=== PATIENT | female | born 1965 | race Two or more races ===

== ENCOUNTER 2019-03-11 12:57 | Emergency (ER) | payer BC ==
[2019-03-11 13:05] VITALS: TEMP 98.6; BMI 27.3
--- NOTE | 2019-03-11 13:52 | PDOC ---
Attending Attestation - Resident Resident Name: Joshua Lechuga - HPI HPI: 03/11/19 15:40 Pt presents to the ED complaining of epigastric pain that has been persistent for several weeks. Pain is severe, waxing and waning, and N - Physicial Exam PE: 03/11/19 15:47 Agree with resident exam. Patient is alert and oriented and in no acute distress. Abdomen is soft, non tender, non distended, without guarding or rebound. - Medical Decision Making 03/11/19 15:50 Pt presents to the ED complaining of epigastric pain. History of ulcer, intermittent compliance with omeprazole. Will check labs to rule out pancreatitis or biliary disease, check US to evaluate for cholecystitis and reassess.
[2019-03-11] MEDS ORDERED: ONDANSETRON 4 MG/2 ML VIAL IVPUSH ONE (14:01)
[2019-03-11] MEDS ORDERED: ACETAMINOPHEN 1000 MG/100 ML VIAL (NON FORMULARY) IVPB ONE (14:01)
[2019-03-11] MEDS ORDERED: SODIUM CHLORIDE 1,000 ML IV STA (14:01)
[2019-03-11] MEDS ORDERED: FAMOTIDINE 20 MG/50 ML IVPB 20 MG/50 ML MG IVPB ONE ×2 (14:01→14:32)
--- NOTE | 2019-03-11 14:18 | PDOC ---
History of Present Illness - General Chief Complaint: Pain Stated Complaint: ABDOMINAL PAIN Time Seen by Provider: 03/11/19 13:50 History Source: Patient Exam Limitations: No Limitations - History of Present Illness Initial Comments: 03/11/19 14:12 Patient is a 53F with history of DM (on metformin) and gastric ulcer ( previously treated by Dr Fink) here today complaining of two days of epigastric pain. She describes it as a burning with radiation to her chest. Denies fevers, endorses chills. Denies nausea, vomiting, diarrhea constipation. Denies vaginal pain, discharge. Hysterectomy at 37. Denies pain in chest and shortness of breath. Patient states that this feels like her prior ulcers. Past History - Past Medical History Allergies/Adverse Reactions: Allergies Allergy/AdvReac Type Severity Reaction Status Date / Time No Known Allergies Allergy Verified 03/11/19 13:05 Home Medications: Ambulatory Orders Metformin HCl [Glucophage] 500 mg PO BID 03/11/19 Omeprazole 40 mg PO DAILY PRN 03/11/19 COPD: No Diabetes: Yes GI Disorders: Yes (ulcer) - Surgical History Appendectomy: Yes - Psycho Social/Smoking Cessation Hx Smoking History: Never smoked Review of Systems - Review of Systems Able to Perform ROS?: Yes Comments:: 03/11/19 14:16 GENERAL/CONSTITUTIONAL: No fever or chills. No weakness. HEAD, EYES, EARS, NOSE AND THROAT: No change in vision. No sore throat. CARDIOVASCULAR: No chest pain or shortness of breath RESPIRATORY: No cough, wheezing, or hemoptysis. GASTROINTESTINAL: No nausea, vomiting, diarrhea or constipation. GENITOURINARY: No dysuria, frequency, or change in urination. MUSCULOSKELETAL: No joint or muscle swelling or pain. No neck or back pain. SKIN: No rash NEUROLOGIC: No headache, vertigo, loss of consciousness, or change in strength/ sensation. ENDOCRINE: No increased thirst. No abnormal weight change HEMATOLOGIC/LYMPHATIC: No anemia, easy bleeding, +history of blood clots (DVT, not currently on AC) ALLERGIC/IMMUNOLOGIC: No hives or skin allergy. *Physical Exam - Vital Signs Last Vital Signs Temp Pulse Resp BP Pulse Ox 98.6 F 104 H 18 116/80 98 03/11/19 13:02 03/11/19 13:02 03/11/19 13:02 03/11/19 13:02 03/11/19 13:02 - Physical Exam Comments: 03/11/19 14:18 GENERAL: Awake, alert, and fully oriented, in no acute distress HEAD: No signs of trauma, normocephalic, atraumatic EYES: PERRLA, EOMI, sclera anicteric, conjunctiva clear ENT: Auricles normal inspection, hearing grossly normal, nares patent, oropharynx clear without exudates. Moist mucosa NECK: Normal ROM, supple, no lymphadenopathy, JVD, or masses LUNGS: No distress, speaks full sentences, clear to auscultation bilaterally HEART: Regular rate and rhythm, normal S1 and S2, no murmurs, rubs or gallops, peripheral pulses normal and equal bilaterally. ABDOMEN: Soft, mildly tender in RUQ and LUQ, normoactive bowel sounds. No guarding, no rebound. No masses EXTREMITIES: Normal inspection, Normal range of motion, no edema. No clubbing or cyanosis. NEUROLOGICAL: Cranial nerves II through XII grossly intact. Normal speech, normal gait, no focal sensorimotor deficits SKIN: Warm, Dry, normal turgor, no rashes or lesions noted. ED Treatment Course - LABORATORY CBC & Chemistry Diagram: 03/11/19 14:30 03/11/19 14:30 - RADIOLOGY Radiology Studies Ordered: Category Date Time Status ABDOMEN US -LIMITED [US] Stat Ultrasound 03/11/19 14:02 Ordered Medical Decision Making - Medical Decision Making 03/11/19 14:18 Patient is 53F with history of DM and gastric ulcer here today with epigastric pain. Vitals notable for mild tachycardia, otherwise stable. DDx includes, but is not limited to: gastritis, pancreatitis, cholecystitis. Will treat with tylenol, fluids, zofran, pepcid. Will evaluate with cbc, cmp, lipase, trop, ekg , us. 03/11/19 15:40 CBC normal CMP reassuring. Trop negative. Lipase negative. US shows fatty liver. Pain resolved, will discharge pending EKG. 03/11/19 16:28 UA clear EKG shows NSR with rate of 77. No st elevations/depressions. Normal axis. Normal intervals. Patient continues to be pain free. Results discussed. Given outpatient follow up. Discharge - Discharge Information Problems reviewed: Yes Clinical Impression/Diagnosis: Abdominal pain Condition: Good Disposition: HOME - Admission No - Follow up/Referral Referrals: Saroj Fink MD [Staff Physician] - - Patient Discharge Instructions Patient Printed Discharge Instructions: DI for Abdominal Pain-Adult Additional Instructions: You were seen today in the ED for your abdominal pain. We believe your pain is most likely caused by inflammation in your stomach. Please follow up with your primary care doctor and Dr Fink in the next week. Please return if you have any new, worsening or concerning symptoms, especially increasing pain, fever and vomiting. - Post Discharge Activity Work/Back to School Note: Back to Work
[2019-03-11] MEDS ORDERED: ONDANSETRON 4 MG/2 ML VIAL ONE (14:32)
[2019-03-11] MEDS ORDERED: ACETAMINOPHEN INJECTION 100 ML IVPB ONE (14:32)
[2019-03-11 14:51] LABS: BASO % 0.4 % (0-2.0); EOS % 1.8 % (0-4.5); HEMATOCRIT 37.1 % (32.4-45.2); HEMOGLOBIN 12.5 GM/dL (10.7-15.3); LYMPH % 22.5 % (8-40); MCH 30.1 pg (25.7-33.7); MCHC 33.7 g/dl (32.0-36.0); MEAN CELL VOLUME 89.2 fl (80-96); MEAN PLT VOLUME 8.3 fl (7.5-11.1); MONO % 5.7 % (3.8-10.2); NEUT % 69.6 % (42.8-82.8); PLATELET COUNT 325 K/MM3 (134-434); RBC 4.16 M/mm3 (3.60-5.2); RDW 13.8 % (11.6-15.6); WHITE BLOOD COUNT 6.1 K/mm3 (4.0-10.0)
[2019-03-11 15:10] LABS: ALBUMIN 3.6 g/dl (3.4-5.0); BILIRUBIN,TOTAL 0.2 mg/dL (0.2-1); BLOOD UREA NITROGEN 13.1 mg/dL (7-18); CALCIUM 8.9 mg/dL (8.5-10.1); CREATININE 0.7 mg/dL (0.55-1.3); TOT PROT 7.3 g/dl (6.4-8.2)
[2019-03-11 15:17] LABS: INR 1.03 (0.83-1.09); PROTHROMBIN TIME (PATIENT) 12.2 SEC (9.7-13.0)
[2019-03-11 16:14] LABS: URINE APPEARANCE CLEAR; URINE BILIRUBIN NEGATIVE (NEGATIVE); URINE COLOR YELLOW; URINE GLUCOSE (UA) NEGATIVE (NEGATIVE); URINE KETONE NEGATIVE (NEGATIVE); URINE LEUK ESTERASE NEGATIVE (NEGATIVE); URINE NITRITE NEGATIVE (NEGATIVE); URINE PROTEIN NEGATIVE (NEGATIVE)
[2019-03-11 16:43] VITALS: BP 115/70; PULSE 80
--- NOTE | 2019-03-12 15:56 | EKG ---
Test Reason : Blood Pressure : / mmHG Vent. Rate : 077 BPM Atrial Rate : 077 BPM P-R Int : 172 ms QRS Dur : 088 ms QT Int : 428 ms P-R-T Axes : 025 016 037 degrees QTc Int : 484 ms NORMAL SINUS RHYTHM MINIMAL VOLTAGE CRITERIA FOR LVH, MAY BE NORMAL VARIANT PROLONGED QT ABNORMAL ECG WHEN COMPARED WITH ECG OF 24-NOV-2008 09:50, NO SIGNIFICANT CHANGE WAS FOUND Confirmed by ANISHA DUFF, BEAN ([id number]) on 03/12/2019 3:56:08 PM Referred By: Confirmed By:BEAN LANCASTER MD
== END 2019-03-11 16:44 | disposition home or self-care (01) ==
LOC: JER 12:57
PROC: 3E0337Z Introduction of Electrolytic and Water Balance Substance into Peripheral Vein, Percutaneous Approach (ICD-10-PCS; principal; 2019-03-11)
PROC: 3E033GC Introduction of Other Therapeutic Substance into Peripheral Vein, Percutaneous Approach (ICD-10-PCS; 2019-03-11)
PROC: 3E033GC Introduction of Other Therapeutic Substance into Peripheral Vein, Percutaneous Approach (ICD-10-PCS; 2019-03-11)
PROC: 3E033NZ Introduction of Analgesics, Hypnotics, Sedatives into Peripheral Vein, Percutaneous Approach (ICD-10-PCS; 2019-03-11)
DX: R10.9 Unspecified abdominal pain (principal)
CPT/HCPCS: 36415; 76705-TC; 80053; 81003; 82550; 82553; 83690; 84484; 85025; 85610; 93005; 93010; 99283-25; J0131; J7030

== ENCOUNTER 2019-06-02 13:40 | Emergency (ER) | payer BC ==
[2019-06-02 13:50] VITALS: BMI 28.2
--- NOTE | 2019-06-02 15:04 | PDOC ---
History of Present Illness - General Chief Complaint: Chest Pain Stated Complaint: CHEST/BACK PAIN Time Seen by Provider: 06/02/19 14:08 History Source: [employer] Used ([id number]) Exam Limitations: Language Barrier Past History - Past Medical History Allergies/Adverse Reactions: Allergies Allergy/AdvReac Type Severity Reaction Status Date / Time No Known Allergies Allergy Verified 03/11/19 13:05 Home Medications: Ambulatory Orders Metformin HCl [Glucophage] 500 mg PO BID 03/11/19 Omeprazole 40 mg PO DAILY PRN 03/11/19 Guaifenesin AC [Robitussin AC] 5 ml PO Q6H PRN #60 ml MDD 20 mL 06/02/19 COPD: No Diabetes: Yes GI Disorders: Yes (ulcer) - Surgical History Appendectomy: Yes - Immunization History Immunization Up to Date: No - Psycho Social/Smoking Cessation Hx Smoking History: Never smoked Have you smoked in the past 12 months: No Information on smoking cessation initiated: No Hx Alcohol Use: No Drug/Substance Use Hx: No *Physical Exam - Vital Signs Last Vital Signs Temp Pulse Resp BP Pulse Ox 98.7 F 105 H 18 114/74 99 06/02/19 13:47 06/02/19 13:47 06/02/19 13:47 06/02/19 13:47 06/02/19 13:47 Heart Score/ECG Review - History History: Slightly suspicious - Age Age: 45-65 - Risk Factors Risk Factors Heart Score: Yes Hx Diabetes, Yes Positive family hx of cardiac disease Based on the list above the patient has:: 1-2 risk factors ED Treatment Course - LABORATORY CBC & Chemistry Diagram: 06/02/19 15:11 06/02/19 15:11 - RADIOLOGY Radiology Studies Ordered: Category Date Time Status CHEST X-RAY PORTABLE* [RAD] Stat Radiology 06/02/19 14:51 Ordered Medical Decision Making - Medical Decision Making 06/02/19 14:58 53F PMH NIDDM, prior DVT s/p surgical removal c/o 3 days of productive nonbloody cough, sore throat, congestion, fevers with substernal chest pain that only occurs with cough. Also endorses low back pain only when she coughs and a front headache whenever she coughs. Denies sob, hemoptysis, sick contacts , abd pain, n/v/d, urinary sx. +FHx cardiac dz (ACS in father @ 50). No recent travel/surgery/immobilization, OCPs, leg swelling, malignancy. NKDA Denies tobacco, etoh, and drugs CONSTITUTIONAL: Denies F / C HEENT: Endorses headache only w/ cough, sore throat, rhinorrhea. Denies changes to vision/hearing RESP: Endorses productive cough. Denies SOB CARD: Endorses chest pain only w/ cough GI: Denies N / V / D, abdominal pain, bloody stool, inability to tolerate PO : Denies dysuria, frequency SKIN: Denies rashes NEURO: Denies numbness, tingling, focal weakness MSK: Endorses low back pain only w/ cough VITALS: AF, tachycardic GEN: NAD, AAOx3. HEENT: NC/AT. No facial asymmetry. Moist mucous membranes, nonerythematous nonexudative posterior oropharynx. Normal voice. Supple neck w/ FROM. CV: S1/S2, RRR, no m/r/g LUNG: CTAB, no wheezes, crackles, rales, rhonchi. GI: Soft, ndnt, +BS, no guarding, no rebound. No masses EXTREMITIES: No obvious deformities of all extremities. No TTP calves b/l. SKIN: Warm, dry, no rashes appreciated. PSYCH: Anxious, cooperative NEURO: Moving all extremities well. BACK: b/l lumbar paraspinal TTP, no midline TTP, no step offs 53 PMH NIDDM, prior DVT s/p surgical removal c/o 3 days of productive cough w/ chest pain, LBP, and front headache ONLY with cough. unremarkable exam DDx - r/o ACS, considering PE. Sx likely 2/2 coughing - CBC, CMP, Cardiac, D-dimer - EKG - CXR 06/02/19 15:34 CXR image and report reviewed: A single view the chest reveals clear lungs, normal mediastinum and sharp angles. The bones and soft tissues are intact. Since 08/07/2014 there is slightly more prominent heart. Correlation recommended. 06/02/19 18:09 D-dimer ~ 1000 trop neg CTA r/o PE - no LMP for 20+ years s/p hysterectomy rpt trop 06/02/19 19:02 Pt temperature downtrending s/p tylenol AF on initial VS was s/p home tylenol 06/02/19 19:16 rpt trop neg 06/02/19 20:42 CTA IOC: Patient Full Name: TERRELL PATEL Patient Accession No: [id number] Patient : 1965 Reason for Exam: R/O PE Referring Physician: KIRK RUSSELL RESIDENT Patient Name: AMANDA TEJADA PRELIMINARY REPORT FROM [facility] EXAM: CTA chest DATE: 2019-06-02 18:51:42 IMAGES: [id number] HISTORY: Pain / dyspnea / elevated d-dimer, possible pulmonary embolism IMPRESSION: No definite pulmonary embolism seen. No aortic dissection seen. Coarse lung markings. No consolidation. Hepatic steatosis. One or more of the following dose reduction techniques were used: automated exposure control, adjustment of the mA and/or kV according to patient size, use of iterative reconstructive technique. THIS DOCUMENT HAS BEEN ELECTRONICALLY SIGNED Ant Cole MD 06/02/2019 20:35 EST Discharge - Discharge Information Condition: Stable - Admission No - Additional Discharge Information Prescriptions: Guaifenesin AC [Robitussin AC] 5 ml PO Q6H PRN #60 ml MDD 20 mL PRN Reason: Cough - Follow up/Referral Referrals: Saroj Sumner PA [Primary Care Provider] - - Patient Discharge Instructions Patient Printed Discharge Instructions: DI for Cough -- Adult, DI for Atypical Chest Pain Additional Instructions: We sent a medication to [facility], please pick it up and take as prescribed. DO NOT DRIVE OR OPERATE MACHINERY AFTER YOU TAKE THIS MEDICATIONS. Take tylenol for pain and fever, follow the directions on the label. You may take ibuprofen for pain and fever as well, follow the directions on the label. Follow up with your primary care doctor in the next 3-5 days. Continue your home medications as prescribed. Immediately return to the Emergency Department if you experience: - worsening pain - change in the type of your pain - shortness of breath - high fever - Post Discharge Activity Work/Back to School Note: Back to Work
[2019-06-02] MEDS ORDERED: ACETAMINOPHEN 1000 MG/100 ML VIAL (NON FORMULARY) IVPB ONE (15:07)
[2019-06-02] MEDS ORDERED: SODIUM CHLORIDE 0.9% 500 ML INFUS.BAG IV ONE (15:07)
--- NOTE | 2019-06-02 15:08 | EKG ---
Test Reason : Blood Pressure : / mmHG Vent. Rate : 099 BPM Atrial Rate : 099 BPM P-R Int : 150 ms QRS Dur : 080 ms QT Int : 344 ms P-R-T Axes : 028 019 030 degrees QTc Int : 441 ms POOR DATA QUALITY, INTERPRETATION MAY BE ADVERSELY AFFECTED NORMAL SINUS RHYTHM VOLTAGE CRITERIA FOR LEFT VENTRICULAR HYPERTROPHY ABNORMAL ECG WHEN COMPARED WITH ECG OF 11-MAR-2019 15:49, NO SIGNIFICANT CHANGE WAS FOUND Confirmed by ARNULFO DING MD ([id number]) on 06/02/2019 3:07:44 PM Referred By: Confirmed By:ARNULFO DING MD
[2019-06-02] MEDS ORDERED: ACETAMINOPHEN INJECTION 100 ML IVPB ONE (15:19)
[2019-06-02 15:37] LABS: BASO % 1.2 % (0-2.0); EOS % 0.3 % (0-4.5); HEMATOCRIT 37.6 % (32.4-45.2); HEMOGLOBIN 12.4 GM/dL (10.7-15.3); LYMPH % 17.3 % (8-40); MCH 29.5 pg (25.7-33.7); MCHC 32.9 g/dl (32.0-36.0); MEAN CELL VOLUME 89.7 fl (80-96); MEAN PLT VOLUME 9.2 fl (7.5-11.1); MONO % 8.7 % (3.8-10.2); NEUT % 72.5 % (42.8-82.8); PLATELET COUNT 310 K/MM3 (134-434); RBC 4.19 M/mm3 (3.60-5.2); RDW 14.2 % (11.6-15.6)
[2019-06-02 15:55] LABS: MAGNESIUM 2.2 mg/dL (1.8-2.4); PHOSPHOROUS 3.2 mg/dL (2.5-4.9)
[2019-06-02 15:58] LABS: ALBUMIN 3.5 g/dl (3.4-5.0); ALK PHOS 101 U/L (45-117); ANION GAP 7 MMOL/L (8-16); BILIRUBIN,TOTAL 0.2 mg/dL (0.2-1); BLOOD UREA NITROGEN 11.6 mg/dL (7-18); CALCIUM 8.7 mg/dL (8.5-10.1); CHLORIDE 104 mmol/L (98-107); CO2 26 mmol/L (21-32); CREATININE 0.6 mg/dL (0.55-1.3); GLUCOSE,RANDOM 109 mg/dL (74-106); POTASSIUM 3.9 mmol/L (3.5-5.1); SGOT/AST 44 U/L (15-37); SGPT/ALT 73 U/L (13-61); SODIUM 137 mmol/L (136-145); TOT PROT 7.7 g/dl (6.4-8.2)
--- NOTE | 2019-06-02 16:15 | PDOC ---
Documentation entered by Joe Merino SCRIBE, acting as scribe for Evon Pichardo MD. Evon Pichardo MD: This documentation has been prepared by the Wilber harp Xhesika, SCRIBE, under my direction and personally reviewed by me in its entirety. I confirm that the documentation accurately reflects all work, treatment, procedures, and medical decision making performed by me. Attending Attestation - Resident Resident Name: David Downs - HPI HPI: 06/02/19 15:41 The patient is a 53 year old female with a significant PMH of NIDDM, gastric ulcers, and prior DVT s/p surgical removal who presents to the emergency department for 3 days of productive cough, congestion, fever, headache, back pain, and substernal chest pain. The patient notes her CP and back pain only occur when she coughs and are worse when the patient coughs. The patient denies shortness of breath, chills, nausea, vomiting, diarrhea and constipation. Denies dysuria, frequency, urgency and hematuria. Allergies: NKDA - Physicial Exam PE: 06/02/19 15:41 GENERAL: Awake, alert, and fully oriented, in no acute distress HEAD: No signs of trauma EYES: PERRLA, EOMI, sclera anicteric, conjunctiva clear ENT: Auricles normal inspection, hearing grossly normal, nares patent, oropharynx clear without exudates. Moist mucosa NECK: Normal ROM, supple, no lymphadenopathy, JVD, or masses LUNGS: Breath sounds equal, clear to auscultation bilaterally. No wheezes, and no crackles HEART: Regular rate and rhythm, normal S1 and S2, no murmurs, rubs or gallops ABDOMEN: Soft, nontender, normoactive bowel sounds. No guarding, no rebound. No masses EXTREMITIES: Normal range of motion, no edema. No clubbing or cyanosis. No cords, erythema, or tenderness NEUROLOGICAL: Cranial nerves II through XII grossly intact. SKIN: Warm, Dry, normal turgor, no rashes or lesions noted. - Medical Decision Making 06/02/19 16:02 Pt presents to the ED complaining of cough, pleuritic chest pain and subjective fever. History of DVT, no longer on anticoagulation. Differential includes PNA , viral syndrome, less likely ACS or PE. Will check labs including cardiac enzymes and D dimer. Will reassess. 06/02/19 16:12
[2019-06-02] MEDS ORDERED: guaiFENesin/CODEINE 10 ML UNIT-DOSE CUPS PO ONE (20:47)
[2019-06-02] MEDS ORDERED: guaiFENesin 200 MG/10 ML 10 ML UNIT-DOSE CUPS ONE (21:10)
[2019-06-02 21:21] VITALS: BP 137/78; PULSE 94; TEMP 100
== END 2019-06-02 21:21 | disposition home or self-care (01) ==
LOC: JER 13:40
PROC: 3E033NZ Introduction of Analgesics, Hypnotics, Sedatives into Peripheral Vein, Percutaneous Approach (ICD-10-PCS; principal; 2019-06-02)
DX: R07.9 Chest pain, unspecified (principal); R05 Cough; E11.9 Type 2 diabetes mellitus without complications; Z79.84 Long term (current) use of oral hypoglycemic drugs; Z86.718 Personal history of other venous thrombosis and embolism; Z87.19 Personal history of other diseases of the digestive system
CPT/HCPCS: 36415; 71045-TC-FY; 71275-TC; 80053; 82550; 83735; 84100; 84484; 85025; 85379; 93005; 93010; 99283-25; J0131; Q9967

== ENCOUNTER 2020-08-05 10:23 | Emergency (ER) | payer BC ==
[2020-08-05 10:41] VITALS: BP 123/81; PULSE 99; TEMP 98.9; BMI 26.6
[2020-08-05 11:53] LABS: EOS % 2.6 % (0-4.5); HEMATOCRIT 36.8 % (32.4-45.2); HEMOGLOBIN 12.4 GM/dL (10.7-15.3); LYMPH % 35.5 % (8-40); MCH 29.9 pg (25.7-33.7); MCHC 33.6 g/dl (32.0-36.0); MEAN CELL VOLUME 89.1 fl (80-96); MEAN PLT VOLUME 8.3 fl (7.5-11.1); MONO % 5.3 % (3.8-10.2); NEUT % 55.6 % (42.8-82.8); PLATELET COUNT 345 K/MM3 (134-434); RBC 4.13 M/mm3 (3.60-5.2); RDW 13.9 % (11.6-15.6); WHITE BLOOD COUNT 6.1 K/mm3 (4.0-10.0)
[2020-08-05 12:11] LABS: CHLORIDE 108 mmol/L (98-107); POTASSIUM 4.1 mmol/L (3.5-5.1); SODIUM 140 mmol/L (136-145)
[2020-08-05 12:13] LABS: CALCIUM 9.4 mg/dL (8.5-10.1)
[2020-08-05 12:14] LABS: ALBUMIN 3.6 g/dl (3.4-5.0); ANION GAP 6 MMOL/L (8-16); BLOOD UREA NITROGEN 13.6 mg/dL (7-18); CO2 26 mmol/L (21-32); GLUCOSE,RANDOM 112 mg/dL (74-106)
[2020-08-05 12:17] LABS: CREATININE 0.6 mg/dL (0.55-1.3); SGOT/AST 23 U/L (15-37); SGPT/ALT 42 U/L (13-61)
[2020-08-05 12:18] LABS: BILIRUBIN,TOTAL 0.3 mg/dL (0.2-1); TOT PROT 7.6 g/dl (6.4-8.2)
[2020-08-05 12:20] LABS: ALK PHOS 104 U/L (45-117)
== END 2020-08-05 13:02 | disposition home or self-care (01) ==
LOC: JER 10:23
DX: R07.89 Other chest pain (principal)
CPT/HCPCS: 36415; 71045-TC-FY; 80053; 84484; 85025; 93005; 93010; 99285-25

== ENCOUNTER 2023-01-06 06:09 | Day surgery (SDC) | payer BC ==
[2022-12-30 13:55] VITALS: BMI 25.5
[2023-01-06] MEDS ORDERED: LIDOCAINE HCL/PF 2% SDV 5ML VIAL ONE (06:56)
[2023-01-06] MEDS ORDERED: MIDAZOLAM HCL 2 MG/2 ML SINGLE DOSE VIAL ONE (06:56)
[2023-01-06] MEDS ORDERED: PROPOFOL 20 ML ONE ×2 (06:57)
[2023-01-06] MEDS ORDERED: BUPIVACAINE HCL/PF 2.5 MG/ML - 30 ML VIAL IJ ONE (07:09)
[2023-01-06] MEDS ORDERED: EPINEPHrine 1:1,000 1,000 MCG/ML ML ONE (07:09)
[2023-01-06] MEDS ORDERED: ceFAZolin SODIUM 1 GM VIAL ONE ×2 (07:35→07:36)
[2023-01-06] MEDS ORDERED: SODIUM CHLORIDE 0.9% P/F 10 ML VIAL IJ ONE (07:36)
[2023-01-06] MEDS ORDERED: DEXAMETHASONE SOD PHOSPHATE 4 MG/1 ML VIAL ONE (08:28)
[2023-01-06] MEDS ORDERED: ONDANSETRON 4 MG/2 ML VIAL ONE (08:47)
[2023-01-06] MEDS ORDERED: KETOROLAC TROMETHAMINE 30 MG/1 ML VIAL ONE (08:50)
[2023-01-06] MEDS ORDERED: ONDANSETRON 4 MG/2 ML VIAL IVPUSH PRN (09:11)
[2023-01-06] MEDS ORDERED: FENTANYL CITRATE/PF 50 MCG/ML VIAL ONE ×3 (09:12→10:16)
[2023-01-06] MEDS ORDERED: ACETAMINOPHEN 1000 MG/100 ML BAG IVPB ONE (09:12)
[2023-01-06] MEDS ORDERED: oxyCODONE HCL 5 MG TABLET PO PRN ×2 (09:12)
[2023-01-06] MEDS ORDERED: LACTATED RINGERS SOLUTION 1,000 ML IV SCH (09:15)
[2023-01-06 09:17] VITALS: TEMP 97.8
[2023-01-06 09:18] VITALS: RESP 16
[2023-01-06 10:50] VITALS: PULSE 74
[2023-01-06] MEDS ORDERED: OXYBUTYNIN CHLORIDE 5 MG TABLET PO ONE (10:50)
[2023-01-06] MEDS ORDERED: oxyCODONE HCL 5 MG TABLET PO ONE (10:50)
[2023-01-06] MEDS ORDERED: oxyCODONE HCL 5 MG TABLET ONE (10:52)
[2023-01-06 11:50] VITALS: BP 145/67
== END 2023-01-06 11:30 | disposition home or self-care (01) ==
LOC: FASU 06:09
PROVIDERS: ATTEND Orthopaedic Surgery
PROC: 0SBC4ZZ Excision of Right Knee Joint, Percutaneous Endoscopic Approach (ICD-10-PCS; 2023-01-06)
PROC: 0SBC4ZZ Excision of Right Knee Joint, Percutaneous Endoscopic Approach (ICD-10-PCS; principal; 2023-01-06 08:37)
DX: S83.241A Other tear of medial meniscus, current injury, right knee, initial encounter (principal); S83.8X1A Sprain of other specified parts of right knee, initial encounter; M65.861 Other synovitis and tenosynovitis, right lower leg; X58.XXXA Exposure to other specified factors, initial encounter; Y93.9 Activity, unspecified; Y92.9 Unspecified place or not applicable
CPT/HCPCS: 82962; 94760